=== PATIENT | female | born 1985 | race Caucasian/White ===

== ENCOUNTER 2016-06-24 06:05 | Inpatient (IN) | payer BC ==
[2016-06-24] VITALS (24 sets, daily range): BP systolic 103–153; BP diastolic 63–91
[~2016-06-24] VITALS: Ht 162.6 cm; Wt 67.6 kg
[~2016-06-24 06:05] MED LIST: HYDR-34 PO; HYDR-3583 PO; LVT.1T PO; NAPR-243 PO
[2016-06-24] MEDS ORDERED: D5 LR IV SOLUTION 1,000 ML IV SCH (06:12)
[2016-06-24] MEDS ORDERED: AMPICILLIN INJECTION 2,000 MG in NS (IVPB) 50 ML IV SCH (06:12)
[2016-06-24] MEDS ORDERED: MINERAL OIL CONCENTRATE 99.9% 15 ML UDC TOP PRN (06:15)
[2016-06-24] MEDS ORDERED: D5 LR IV SOLUTION 1,000 ML IV ONE (06:57)
[2016-06-24] MEDS ORDERED: AMPICILLIN 2000 MG INJECTION (IM/IV) ONE (06:57)
[2016-06-24] MEDS ORDERED: NS (IVPB) 50 ML ONE (06:58)
[2016-06-24 07:02] LABS: BASOPHILS % (AUTO) 0 % (0-10); EOSINOPHILS # (AUTO) 0.1 10^3/uL (0.0-0.3); EOSINOPHILS % (AUTO) 1 % (0-10); LYMPHOCYTES # (AUTO) 2.7 X 10^3 (1.0-4.0); LYMPHOCYTES % (AUTO) 24 % (12-44); MEAN CORPUSCULAR HEMOGLOBIN 32 PG (25-34); MEAN CORPUSCULAR HGB CONC 35 G/DL (32-36); MEAN CORPUSCULAR VOLUME 91 FL (80-99); MEAN PLATELET VOLUME 9.9 FL (7.4-10.4); MONOCYTES # (AUTO) 0.8 X 10^3 (0.0-1.0); MONOCYTES % (AUTO) 7 % (0-12); NEUTROPHILS # (AUTO) 7.8 X 10^3 (1.8-7.8); NEUTROPHILS % (AUTO) 68 % (42-75); PLATELET COUNT 193 10^3/uL (130-400); RED BLOOD COUNT 3.72 10^6/uL (4.35-5.85); RED CELL DISTRIBUTION WIDTH 13.5 % (10.0-14.5); WHITE BLOOD COUNT 11.5 10^3/uL (4.3-11.0)
--- NOTE | 2016-06-24 08:25 | History & Physical-OB ---
OB - Chief Complaint & HPI Date Date of Admission: Date of Admission: Jun 24, 2016 at 06:05 Chief Complaint/History OB-Reason for Admission/Chief: Induction of Labor Hx : 1 Hx Para: 0 Expected Date of Delivery: Jun 20, 2016 Gestational Age in Weeks: 40 Gestational Age in Days: 4 Indication for induction: post dates Other reason for admission: 30 y/o G1 @ 40w4d by L=8 here for elective IOL GBS+ Has had some contractions all night, no LOF. Some spotting after exam yesterday. Fetus active. c/b hypothyroidism, on synthroid 100 mcg daily. Also with anemia, on iron. History of Labs O+ Antibody neg RI Hep B/C neg/neg HIV neg RPR NR GC/CT neg/neg GBS+ Last TSH 1.16, fT4 1.4 QS normal Allergies and Home Medications Allergies Coded Allergies: No Known Drug Allergies (Unverified , 08/31/09) Home Medications Hydrocodone Bit/Acetaminophen 1 Ea Tablet, 1 EA PO Q 4 - 6 HR PRN, #15 Ref 0 Prescribed by: DAIANA BOWSER MD on 08/31/09 0938 Levothyroxine Sodium 100 Mcg Tablet, 1 EACH PO DAILY, (Reported) Naproxen 500 Mg Tablet, 1 EACH PO BID PRN, #20 Ref 0 Prescribed by: DAIANA BOWSER MD on 08/31/09 0801 OB - History Hx of Present Care: Yes Ultrasounds: Normal mid trimester US Obstetrical Complications: Other (anemia on iron) Medical Complications: Other (hypothyroidism on synthroid) Information Induced Hypertension: No Maternal Gestational Diabetes: No Obstetrical History Hx : 1 Delivery History Adverse Rxn to Tranfusion: No Patient Past Medical History hypothyroidism Social History/Family History HIV/AIDS: No Recent Infectious Disease Expo: No Alcohol Use: Denies Use Recreational Drug Use: No Smoking Cessation: Never smoker Immunizations Hepatitis A: Yes Hepatitis B: Yes Tetanus Booster (TDap): Less than 5yrs (04/14/16) Rubella: immune RPR/VDRL: Negative GBS Status: Positive HBsAG: Negative OB - Admission Exam Physical Exam Vitals: Vital Signs 06/24/16 06/24/16 06:05 07:00 Temp 97.8 Pulse 70 Resp 18 B/P (MAP) 103/67 HEENT: NCAT Heart: Rhythm Normal Lungs: Clear Abdomen: Gravid Extremities: Normal Reflexes: Normal Cervical Dilatation: 4cm Effacement: 75% Station: 0 Membranes: Ruptured Amniotic Fluid: Thin Meconium Heart Rate: 130's Accelerations: Accelerations Present Decelerations: No Decelerations Short Term Variability: Present Senior Living Variability: Average (6-25) Contractions on Admission: 6-10 Minutes Apart Intensity: Moderate Penn Scoring Tool (Modified) Dilation (cm): 3-4cm (2) Effacement (%): 51-79% (2) Descent/Station: -1,0 (2) Cervix Consistency: Soft (2) Cervix Position: Middle/Mid-Position (1) Subtract 1 point for: Nulliparity (-1) Penn Score: 8 Labs Laboratory Tests Test 06/24/16 06:45 Range/Units White Blood Count 11.5 H 4.3-11.0 10^3/uL Red Blood Count 3.72 L 4.35-5.85 10^6/uL Hemoglobin 11.8 11.5-16.0 G/DL Hematocrit 34 L 35-52 % Mean Corpuscular Volume 91 80-99 FL Mean Corpuscular Hemoglobin 32 25-34 PG Mean Corpuscular Hemoglobin Concent 35 32-36 G/DL Red Cell Distribution Width 13.5 10.0-14.5 % Platelet Count 193 130-400 10^3/uL Mean Platelet Volume 9.9 7.4-10.4 FL Neutrophils (%) (Auto) 68 42-75 % Lymphocytes (%) (Auto) 24 12-44 % Monocytes (%) (Auto) 7 0-12 % Eosinophils (%) (Auto) 1 0-10 % Basophils (%) (Auto) 0 0-10 % Neutrophils # (Auto) 7.8 1.8-7.8 X 10^3 Lymphocytes # (Auto) 2.7 1.0-4.0 X 10^3 Monocytes # (Auto) 0.8 0.0-1.0 X 10^3 Eosinophils # (Auto) 0.1 0.0-0.3 10^3/uL Basophils # (Auto) 0.0 0.0-0.1 10^3/uL OB - Assessment/Plan/Diagnosis Plan Induction Method: AROM Other Plan 30 y/o G1 @ 40w4d here for elective IOL. GBS+ Hypothyroidism on synthroid Anemia on iron Rh+ RI Ampicillin infusing AROM (thin mec) for IOL. If no change in 4 hours, start pitocin. ASVD WILLIAN Carballo MD Jun 24, 2016 08:24
[2016-06-24] MEDS ORDERED: AMPICILLIN INJECTION 1,000 MG in NS (IVPB) 50 ML IV SCH (10:15)
[2016-06-24] MEDS ORDERED: LIDOCAINE/EPI 1%-1:200,000 (XYLOCAINE) 30 ML VIAL ONE (10:24)
[2016-06-24] MEDS ORDERED: OXYTOCIN/NORMAL SALINE 500 ML IV ONE ×2 (10:50→13:10)
--- NOTE | 2016-06-24 12:08 | OB Labor & Delivery Record ---
Vag Delivery Note Vag Delivery Note Date of Delivery: 06/24/16 Preoperative Diagnosis: Alessandra Merritt is a 30 y/o G1 @ 40w4d with augmentation of labor, GBS+, hypothyroidism, thin meconium Postoperative Diagnosis: Same Surgeon: Willian Jacobson MD Anesthesia: Local for repair Delivery Type: Spontaneous vaginal delivery Findings: Viable female , apgars 8/9, weight 6lb9oz Lacerations: second degree perineal (repaired) Intact placenta with 3 vessel cord. No nuchal cord, body cord or shoulder dystocia Estimated Blood Loss: 400 ml Complications: None Condition: Stable Description of Procedure: The patient is a 30 y/o G1 @ 40w4d who presented for scheduled induction of labor. She was admitted and informed consent was obtained. I discussed with her induction with pitocin vs augmentation with AROM and she elected this. Her labor course was remarkable for only AROM with thin meconium. She progressed to complete dilatation and began to push. She was then set up for delivery. The infant's head was delivered atraumatically in the occiput anterior position. The shoulders and remainder of the 's body were then delivered without difficulty. Upon delivery, the head was held below the level of the perineum and the mouth and nares were bulb suctioned. The cord was doubly clamped and cut after the was placed on her mother's chest, crying vigorously. An intact placenta with 3-vessel cord delivered via Roma and there was found to be minimal bleeding. Vigorous fundal massage was performed and the fundus was found to be firm. IV oxytocin was given. Examination of the vagina and perineum revealed a second degree perineal laceration repaired in the usual fashion with 3-0 vicryl suture. Following the repair, sponge, instrument and needle counts were correct. Mom and baby were both in stable condition in the labor suite. Dr. Franz was present at delivery due to meconium. Vitals - Labs Vital Signs - I&O Vital Signs Date Time Temp Pulse Resp B/P (MAP) Pulse Ox O2 Delivery O2 Flow Rate FiO2 06/24/16 10:29 94 20 128/86 Room Air 06/24/16 10:14 97 20 153/84 Room Air 06/24/16 10:00 83 20 134/81 Room Air 06/24/16 09:50 69 20 126/80 Room Air 06/24/16 09:30 64 20 128/81 Room Air 06/24/16 09:15 70 20 141/91 Room Air 06/24/16 08:30 77 20 134/77 Room Air 06/24/16 08:10 73 20 121/66 Room Air 06/24/16 07:50 70 18 116/68 Room Air 06/24/16 07:30 77 18 111/63 Room Air 06/24/16 07:10 70 18 103/67 06/24/16 07:00 70 18 103/67 06/24/16 06:05 97.8 82 18 117/74 Labs Laboratory Tests 06/24/16 06:45: White Blood Count 11.5H, Red Blood Count 3.72L, Hemoglobin 11.8, Hematocrit 34L , Mean Corpuscular Volume 91, Mean Corpuscular Hemoglobin 32, Mean Corpuscular Hemoglobin Concent 35, Red Cell Distribution Width 13.5, Platelet Count 193, Mean Platelet Volume 9.9, Neutrophils (%) (Auto) 68, Lymphocytes (%) (Auto) 24, Monocytes (%) (Auto) 7, Eosinophils (%) (Auto) 1, Basophils (%) (Auto) 0, Neutrophils # (Auto) 7.8, Lymphocytes # (Auto) 2.7, Monocytes # (Auto) 0.8, Eosinophils # (Auto) 0.1, Basophils # (Auto) 0.0 WILLIAN JACOBSON MD Jun 24, 2016 12:08
[2016-06-24] MEDS ORDERED: IBUP-1773 PO (12:11)
[2016-06-24] MEDS ORDERED: ACET-789 PO (12:11)
[2016-06-24] MEDS ORDERED: DOCU-143 PO (12:11)
--- NOTE | 2016-06-24 12:12 | Discharge Inst-Women's Service ---
Discharge Inst-Women's Serv Depart Medication/Instructions New, Converted or Re-Newed RX: RX on Chart Final Diagnosis TIUP, augmentation of labor, GBS+, Consults/Follow Up Additional Follow Up: Yes Orders/Referrals [address] Benitez Activity Activity: Activity as Tolerated Driving Instructions: You May Drive (unless taking narcotic pain medications) NO SMOKING: NO SMOKING Nothing Inside Vagina: No Douching, No Colp, No Tampons Diet Discharge Diet: No Restrictions Symptoms to Report to : Bleeding Excessive, Pain Increased, Fever Over 101 Degrees F, Pain/Pressure in Chest, Vaginal Bleeding Increase, Dizziness/Fainting , Nausea/Vomiting, Shortness of Breath For Any Problems or Questions: Contact Your Physician WILLIAN BENITEZ MD Jun 24, 2016 12:12
[2016-06-24] MEDS ORDERED: CATHETER FLUSH 10 ML SYR IV SCH (14:00)
[2016-06-24] MEDS ORDERED: BENZOCAINE/MENTHOL (DERMOPLAST) 56 ML CAN TP ONE (14:24)
[2016-06-24] MEDS ORDERED: OXYTOCIN/NORMAL SALINE 500 ML IV SCH (15:42)
[2016-06-24] MEDS ORDERED: BENZOCAINE/MENTHOL (DERMOPLAST) 56 ML CAN TP PRN (15:45)
[2016-06-24] MEDS ORDERED: APAP 300 MG/CODEINE 30 MG (TYLENOL #3) TAB PO PRN (15:45)
[2016-06-24] MEDS ORDERED: WITCH HAZEL(TUCKS) 40 EA JAR TOP PRN (15:45)
[2016-06-24] MEDS: IBUPROFEN 600 MG (MOTRIN) TAB PO SCH (21:56)
[2016-06-24] MEDS: DOCUSATE SODIUM 100 MG (COLACE) CAP PO SCH (21:56)
[2016-06-25 02:15] VITALS: BP 95/54
[2016-06-25 04:25] VITALS: BP 115/77
[2016-06-25] MEDS: IBUPROFEN 600 MG (MOTRIN) TAB PO SCH ×5 (04:29→21:17)
[2016-06-25 06:05] LABS: BASOPHILS % (AUTO) 0 % (0-10); EOSINOPHILS # (AUTO) 0.1 10^3/uL (0.0-0.3); EOSINOPHILS % (AUTO) 1 % (0-10); LYMPHOCYTES # (AUTO) 3.4 X 10^3 (1.0-4.0); LYMPHOCYTES % (AUTO) 21 % (12-44); MEAN CORPUSCULAR HEMOGLOBIN 32 PG (25-34); MEAN CORPUSCULAR HGB CONC 34 G/DL (32-36); MEAN CORPUSCULAR VOLUME 93 FL (80-99); MONOCYTES # (AUTO) 0.9 X 10^3 (0.0-1.0); MONOCYTES % (AUTO) 6 % (0-12); NEUTROPHILS # (AUTO) 11.7 X 10^3 (1.8-7.8); NEUTROPHILS % (AUTO) 73 % (42-75); PLATELET COUNT 214 10^3/uL (130-400); RED BLOOD COUNT 3.77 10^6/uL (4.35-5.85); RED CELL DISTRIBUTION WIDTH 13.8 % (10.0-14.5); WHITE BLOOD COUNT 16.1 10^3/uL (4.3-11.0)
[2016-06-25] MEDS: PRENATAL VITAMIN 1 EA TAB PO SCH (07:00)
[2016-06-25] MEDS: DOCUSATE SODIUM 100 MG (COLACE) CAP PO SCH ×2 (09:57→21:14)
[2016-06-25 10:01] VITALS: BP 105/67
[2016-06-25] MEDS: FERROUS SULF 325 MG (IRON) TAB PO SCH (12:58)
[2016-06-25 13:37] VITALS: BP 118/79
[2016-06-25 20:55] VITALS: BP 116/72
[2016-06-25] MEDS: CATHETER FLUSH 10 ML SYR IV SCH (21:16)
[2016-06-26 03:07] VITALS: BP 111/73
[2016-06-26] MEDS: IBUPROFEN 600 MG (MOTRIN) TAB PO SCH ×2 (04:25→10:21)
[2016-06-26] MEDS: CATHETER FLUSH 10 ML SYR IV SCH (06:00)
[2016-06-26 08:08] VITALS: BP 96/60
[2016-06-26] MEDS: FERROUS SULF 325 MG (IRON) TAB PO SCH (09:00)
[2016-06-26] MEDS: DOCUSATE SODIUM 100 MG (COLACE) CAP PO SCH (09:01)
[2016-06-26] MEDS: PRENATAL VITAMIN 1 EA TAB PO SCH (09:01)
--- NOTE | 2016-06-26 10:43 | Postpartum Progress Note ---
Note Note Day # 2 Subjective: Patient is without complaints. Ambulating, voiding. Tolerating a regular diet without nausea or vomiting. Normal lochia. Pain is well controlled with oral pain medications. breast feeding. Objective: Vital Sign - Last 12Hours 06/26/16 06/26/16 03:07 08:08 Temp 97.1 96.9 Pulse 72 85 Resp 18 18 B/P (MAP) 111/73 96/60 Pulse Ox 98 97 O2 Delivery Room Air Room Air Physical Exam: General - Alert and oriented, no apparent distress Abdomen - Soft, appropriately tender to palpation, non-distended, fundus firm at umbilicus Extremities - no edema, negative Sacha's bilaterally Assessment: 1. post- day # 2, status post spont vaginal delivery. Recovering well, hemodynamically stable Plan: Routine care. Encourage breast feeding. Encourage ambulation. Ferrous sulfate supplementation. Plan for discharge tomorrow Vitals - Labs Vital Signs - I&O Vital Signs Date Time Temp Pulse Resp B/P (MAP) Pulse Ox O2 Delivery O2 Flow Rate FiO2 06/26/16 08:08 96.9 85 18 96/60 97 Room Air 06/26/16 03:07 97.1 72 18 111/73 98 Room Air 06/25/16 20:55 97.4 91 18 116/72 98 Room Air 06/25/16 13:37 97.3 101 18 118/79 99 Room Air MURALI QUIROZ DO Jun 26, 2016 10:42
== END 2016-06-26 12:45 | disposition home or self-care (01) | DRG 775 ==
LOC: LDRP 06:05
PROVIDERS: ADMIT Obstetrics & Gynecology; ATTEND Obstetrics & Gynecology
PROC: 10E0XZZ Delivery of Products of Conception, External Approach (ICD-10-PCS; principal; 2016-06-24)
PROC: 0KQM0ZZ Repair Perineum Muscle, Open Approach (ICD-10-PCS; 2016-06-24)
DX: O48.0 Post-term pregnancy (principal); O70.1 Second degree perineal laceration during delivery; O99.283 Endocrine, nutritional and metabolic diseases complicating pregnancy, third trimester; E03.9 Hypothyroidism, unspecified; O99.013 Anemia complicating pregnancy, third trimester; D64.9 Anemia, unspecified; O99.820 Streptococcus B carrier state complicating pregnancy; Z3A.40 40 weeks gestation of pregnancy; Z37.0 Single live birth
CPT/HCPCS: 36415; 85025; 86850; 86900; 86901

== ENCOUNTER → 2018-09-14 | Outpatient (CLI) | payer BC ==
[~2018-09-14] MED LIST changes: +ACET-789 PO; +DOCU-143 PO; +IBUP-1773 PO
--- NOTE | 2018-09-14 16:43 | Diagnostic Imaging Report ---
INDICATION: Anatomic survey. Clinical dates of 20 weeks and 6 days. TECHNIQUE: Multiple real-time grayscale images were obtained over the gravid uterus. COMPARISON: None. FINDINGS: There is a single live intrauterine gestation in transverse position with the head to maternal right. The cervix measures 4.7 cm with no funneling seen. The placenta is anterior/fundal without evidence of previa. The heart rate measures 158 BPM. Amniotic fluid is subjectively within normal limits, with a visible vertical pocket measuring 5.7 cm. The lateral ventricles are seen and appear normal. The cerebellum and cisterna magna are normal. The upper and lower spine are seen. The stomach is seen. The kidneys are seen. The bladder is seen. The cord insertion is seen. A three-vessel cord is seen. A four-chamber heart is seen. The profile is seen. Upper and lower extremities are present. The maternal adnexa are not seen. Biometrical measurements are as follows: Biparietal 5.14 cm, age 21 weeks 5 days. Head circumference 18.31 cm, age 20 weeks 5 days. Abdominal circumference 15.27 cm, age 20 weeks 4 days. Femur length 3.39 cm, age 20 weeks 5 days. Sonographic estimate age: 21 weeks 0 days. Sonographic estimated date of delivery: 01/25/2019. Estimated Weight: 365 gm (+/- 53 gm). LMP percentile: 32%. heart rate: 158 beats per minute. number: 1 of 1. IMPRESSION: 1. Single live intrauterine gestation measuring at 21 weeks and 0 days. heart rate and amniotic fluid appear normal. 2. Amniotic survey, as described above. No abnormalities are seen. Dictated by: Dictated on workstation # [id number]
== END ==
LOC: RAD 15:16
PROVIDERS: ATTEND Obstetrics & Gynecology
DX: Z36.89 Encounter for other specified antenatal screening (principal); Z3A.21 21 weeks gestation of pregnancy
CPT/HCPCS: 76805

== ENCOUNTER 2019-01-19 19:44 | Inpatient (IN) | payer BC ==
[~2019-01-19] VITALS: Ht 162.6 cm; Wt 65.7 kg
[2019-01-19 19:55] VITALS: BP 122/74
[2019-01-19] MEDS ORDERED: D5 LR IV SOLUTION 1,000 ML IV SCH (20:08)
[2019-01-19] MEDS ORDERED: MINERAL OIL CONCENTRATE 99.9% 15 ML UDC TOP PRN (20:15)
[2019-01-19 21:00] VITALS: BP 110/71
[2019-01-19 21:08] LABS: BASOPHILS % (AUTO) 0 % (0-10); EOSINOPHILS # (AUTO) 0.1 10^3/uL (0.0-0.3); EOSINOPHILS % (AUTO) 1 % (0-10); HEMATOCRIT 33 % (35-52); HEMOGLOBIN 11.6 G/DL (11.5-16.0); LYMPHOCYTES # (AUTO) 2.9 X 10^3 (1.0-4.0); LYMPHOCYTES % (AUTO) 24 % (12-44); MEAN CORPUSCULAR HEMOGLOBIN 32 PG (25-34); MEAN CORPUSCULAR HGB CONC 36 G/DL (32-36); MEAN CORPUSCULAR VOLUME 91 FL (80-99); MEAN PLATELET VOLUME 9.8 FL (7.4-10.4); MONOCYTES # (AUTO) 0.7 X 10^3 (0.0-1.0); MONOCYTES % (AUTO) 6 % (0-12); NEUTROPHILS # (AUTO) 8.3 X 10^3 (1.8-7.8); NEUTROPHILS % (AUTO) 69 % (42-75); PLATELET COUNT 205 10^3/uL (130-400); RED CELL DISTRIBUTION WIDTH 13.4 % (10.0-14.5); WHITE BLOOD COUNT 11.9 10^3/uL (4.3-11.0)
[2019-01-19] MEDS ORDERED: CATHETER FLUSH 10 ML SYR IV SCH (22:00)
[2019-01-20] VITALS (15 sets, daily range): BP systolic 94–124; BP diastolic 51–84
--- NOTE | 2019-01-20 07:12 | History & Physical-OB ---
OB - Chief Complaint & HPI Date/Time Date of Admission: Date of Admission: Jan 19, 2019 at 20:00 Date seen by a Provider: Jan 20, 2019 Time Seen by a Provider: 07:00 Chief Complaint/History OB-Reason for Admission/Chief: Onset of Labor Hx : 2 Hx Para: 1 Expected Date of Delivery: Jan 26, 2019 Gestational Age in Weeks: 39 Gestational Age in Days: 0 Admission Nurse Assessment Rev: Yes Allergies and Home Medications Allergies Coded Allergies: No Known Drug Allergies (Unverified , 08/31/09) Home Medications Acetaminophen with Codeine 1 Each Tablet, 1-2 EACH PO Q4H PRN for PAIN Prescribed by: WILLIAN JACOBSON on 06/24/16 1211 Docusate Sodium 100 Mg Capsule, 100 MG PO BID PRN for CONSTIPATION-1ST LINE Prescribed by: WILLIAN JACOBSON on 06/24/16 1211 Ibuprofen 600 Mg Tablet, 600 MG PO Q6H PRN for PAIN Prescribed by: WILLIAN JACOBSON on 06/24/16 1211 Levothyroxine Sodium 100 Mcg Tablet, 1 EACH PO DAILY, (Reported) Patient Home Medication List Home Medication List Reviewed: Yes OB - History Hx of Present Care: Yes Ultrasounds: Normal mid trimester US Obstetrical Complications: None Medical Complications: None Delivery History Adverse Rxn to Tranfusion: No Patient Past Medical History hypothyroidism Social History/Family History HIV/AIDS: No Alcohol Use: Denies Use Recreational Drug Use: No Immunizations Hepatitis A: Yes Hepatitis B: Yes Tetanus Booster (TDap): Less than 5yrs OB - Admission Exam Physical Exam Vitals: Vital Signs 01/19/19 01/19/19 01/20/19 19:55 21:00 00:00 Temp 36.8 Pulse 95 Resp 16 B/P (MAP) 110/71 (84) Pulse Ox 97 O2 Delivery Room Air HEENT: NCAT Heart: Rhythm Normal Lungs: Clear Abdomen: Gravid Extremities: Normal Reflexes: Normal Cervical Dilatation: 6cm Effacement: 75% Station: 0 Membranes: Intact Heart Rate: 130's Accelerations: Accelerations Present Decelerations: No Decelerations Short Term Variability: Present Fci Variability: Average (6-25) Contractions on Admission: 6-10 Minutes Apart Labs Laboratory Tests Test 01/19/19 20:40 Range/Units White Blood Count 11.9 H 4.3-11.0 10^3/uL Red Blood Count 3.58 L 4.35-5.85 10^6/uL Hemoglobin 11.6 11.5-16.0 G/DL Hematocrit 33 L 35-52 % Mean Corpuscular Volume 91 80-99 FL Mean Corpuscular Hemoglobin 32 25-34 PG Mean Corpuscular Hemoglobin Concent 36 32-36 G/DL Red Cell Distribution Width 13.4 10.0-14.5 % Platelet Count 205 130-400 10^3/uL Mean Platelet Volume 9.8 7.4-10.4 FL Neutrophils (%) (Auto) 69 42-75 % Lymphocytes (%) (Auto) 24 12-44 % Monocytes (%) (Auto) 6 0-12 % Eosinophils (%) (Auto) 1 0-10 % Basophils (%) (Auto) 0 0-10 % Neutrophils # (Auto) 8.3 H 1.8-7.8 X 10^3 Lymphocytes # (Auto) 2.9 1.0-4.0 X 10^3 Monocytes # (Auto) 0.7 0.0-1.0 X 10^3 Eosinophils # (Auto) 0.1 0.0-0.3 10^3/uL Basophils # (Auto) 0.0 0.0-0.1 10^3/uL OB - Assessment/Plan/Diagnosis Assessment Assessment: active labor Admission Dx 33 yo @ 39 weeks Active labor Hypothyroidism GBS neg Admission Status: Inpatient Order (span 2 midnights) Reason for Inpatient Admission: Term labor Plan Other Plan CRYSTAL TELLEZ DO Jan 20, 2019 07:12 POS
--- NOTE | 2019-01-20 07:20 | NUR ---
THIS RN INTRODUCES SELF TO PT AND SO. PHYSICAL ASSESSMENT COMPLETE. DENIES NEEDS AT THIS TIME. CALL LIGHT WITHIN REACH. PT LABORING WELL. BREATHING WELL WITH EACH UC.
[2019-01-20] MEDS ORDERED: LIDOCAINE/EPI 2% 1:200,00 (XYLOCAINE) 10 ML VIAL ONE (07:46)
[2019-01-20] MEDS ORDERED: ONDANSETRON 4 MG/2 ML (SDV) Z0FRAN ONE (07:57)
[2019-01-20] MEDS ORDERED: OXYTOCIN/NORMAL SALINE 500 ML IV SCH ×2 (08:13→09:42)
[2019-01-20] MEDS ORDERED: OXYTOCIN/NORMAL SALINE 500 ML IV ONE (08:14)
[2019-01-20] MEDS ORDERED: LIDOCAINE/EPI 2% 1:200,00 (XYLOCAINE) 10 ML VIAL INJ ONE (08:15)
[2019-01-20] MEDS ORDERED: ONDANSETRON 4 MG/2 ML (SDV) Z0FRAN IVP ONE (08:15)
--- NOTE | 2019-01-20 08:15 | NUR ---
DR PEREYRA UPDATED ON PT STATUS. PT CO FEELING PUSHY. SVE BY THIS RN. 6CM, CAN STRETCH TO 7CM, 0 STATION. ORDERS TO START PITOCIN AT THIS TIME.
[2019-01-20] MEDS ORDERED: BENZOCAINE/MENTHOL (DERMOPLAST) 56 ML CAN TP PRN (09:45)
[2019-01-20] MEDS ORDERED: DIBUCAINE (NUPERCAINAL) 1% OINT 30 GM TOP PRN (09:45)
[2019-01-20] MEDS ORDERED: WITCH HAZEL(TUCKS) 40 EA JAR TOP PRN (09:45)
[2019-01-20] MEDS ORDERED: TETANUS,DIPTH,PERTUSS P/F (BOOSTRIX) 0.5 ML VIAL IM ONE (09:45)
[2019-01-20] MEDS ORDERED: MEASLES,MUMPS,RUBELLA 1 EA INJ SQ ONE (09:45)
[2019-01-20] MEDS ORDERED: HYDROcodone/APAP 5 MG/325 MG (LORTAB) TAB PO PRN (09:45)
--- NOTE | 2019-01-20 09:47 | OB Labor & Delivery Record ---
L&D History Date of Service Date of Service: Jan 20, 2019 History Expected Date of Delivery: Jan 26, 2019 Gestational Age in Weeks: 39 Hx : 2 Hx Para: 1 Complications Events: Routine care Operative Indications (Cesarea: N/A-Vaginal Delivery Intrapartal Events: None L&D Stage1 Stage One Onset of Labor - Date: Jan 20, 2019 Monitors and Tracing Monitor Mode: External Heart Rate: 130 Monitor Accelerations: Uniform Monitor Decelerations: Early Station: 0 Makeup Artistry Instructor Variability: Average (6-10) Short Term Variability: Present Presentation: Vertex Vital Signs VS - Last 72 Hours, by Label POS 01/19/19 01/19/19 01/19/19 01/20/19 19:55 19:55 21:00 00:00 Temp 36.8 Pulse 114 114 95 Resp 18 18 16 B/P (MAP) 122/74 (90) 110/71 (84) Pulse Ox 97 97 97 O2 Delivery Room Air Room Air Room Air Room Air 01/20/19 01/20/19 01/20/19 01/20/19 07:15 07:30 07:45 08:00 Pulse 81 77 94 Resp 20 B/P (MAP) 118/77 (91) 124/77 (93) 117/76 (90) O2 Delivery Room Air Room Air Room Air Room Air 01/20/19 08:15 Temp 36.1 B/P (MAP) O2 Delivery Room Air Rupture of Membranes Spontaneous Ruture of Membrane: No Amniotic Membrane Rupture Time: 0700 Amniotic Membrane Fluid Desc.: Clear Vaginal Bleeding Description: Normal Show Progress/Notes Patient progressed in 1.5 hrs and 2 mu of pitocin after arom to complete and +1 station when she began to feel urge to push L&D Stage2 Stage Two Stage II Date: Jan 20, 2019 Monitors and Tracing Monitor Mode: External Heart Rate: 130 Monitor Decelerations: Variable Nursing Home Variability: Average (6-10) Short Term Variability: Present Position: Right Occiput Anterior Presentation: Vertex Cord Descript/Complications Cord Vessel Description: 3 Vessels Complications tight nuchal clamped and cut at perineum Delivery Type Infant Delivery Method: Spontaneous Vaginal Anterior Shoulder: Right Episiotomy/Perineal Laceration Laceraction(s)/Extensions: Yes Episiotomy Description: Perineal Extension/lac, 2nd degree Degree (describe repair) 2nd degree perineal laceration repaired using 3-0 and 2-0 vicryl suture Condition of Delivery 1 minute Comment: 8 5 minute Comment: 9 Notes Live male infant weight 7lbs 7oz Condition of Infant Condition of Infant: Living Exam: No Observed Abnormalities Resuscitation Resuscitation: N/A - Spontaneous Resp L&D Stage3 Stage Three Stage III Date: Jan 20, 2019 Pictocin Pitocin Administration mu/min: 2 Pitocin ml/hr: 2 Pitocin Administration Comment: 30 mu wide open at delivery of placenta Placenta Delivery Placenta Delivery: Spontaneous Delivery Summary Summary Estimated blood loss (mL): 350 mL Attending at delivery: Crystal Pereyra DO Condition of Delivery Examined: Cervix Examined, Uterus Explored Post Hemorrhage: No Condition of Mother stable Condition of (s) stable CRYSTAL PEREYRA DO Jan 20, 2019 9:47 am POS
[2019-01-20] MEDS ORDERED: Benzocaine/Menthol TP (09:48)
[2019-01-20] MEDS ORDERED: FERR325T18 PO (09:48)
[2019-01-20] MEDS ORDERED: DIBU30OI TOP (09:48)
[2019-01-20] MEDS ORDERED: DOCU100C37 PO (09:48)
[2019-01-20] MEDS ORDERED: ACHD5005 PO (09:48)
[2019-01-20] MEDS ORDERED: IBUP-844 PO (09:48)
--- NOTE | 2019-01-20 09:49 | Discharge Inst-Women's Service ---
Discharge Inst-Women's Serv Depart Medication/Instructions New, Converted or Re-Newed RX: RX on Chart Final Diagnosis PPD 1 NVD Problems Reviewed?: Yes Consults/Follow Up Additional Follow Up: Yes Orders/Referrals Dr. Pereyra in 6 weeks Activity Activity: Activity as Tolerated Driving Instructions: No Driving for 1 Week NO SMOKING: NO SMOKING Nothing Inside Vagina: No Douching, No Ivey, No Tampons Diet Discharge Diet: No Restrictions Symptoms to Report to : Bleeding Excessive, Pain Increased, Fever Over 101 Degrees F, Vaginal Bleeding Increase, Questions/Concerns For Any Problems or Questions: Contact Your Physician CRYSTAL PEREYRA DO Jan 20, 2019 9:49 am POS
[2019-01-20] MEDS: IBUPROFEN 600 MG (MOTRIN) TAB PO SCH ×3 (10:14→22:28)
--- NOTE | 2019-01-20 11:28 | NUR ---
0903: dr gifford at bedside. room set up for delivery. pt placed in stirrups. 0904: pt begins pushing at this time. pt's , dr gifford, this rn, elaine rn, and dr gifford's student at bedside. 0918: delivery of head with tight nuchal cord. cord clamped and cut by dr gifford. 0919: spontaneous vaginal delivery of [address] gifford. infant placed on mothers chest. elaine at bedside for infant assessment. 0934: delivery of intact placenta by dr gifford 0940: recovery period begins. vss. fundus firm, midline, 1 below, light bleeding. pericare by this rn. linen change. pt denies pain. call light within reach. 0955: vss. fundus firm, midline, 1 below, light bleeding. pt denies needs at this time. call light within reach. 1010: vss. fundus firm, midline, 1 below, light bleeding. pt denies needs at this time. call light within reach. pt attempting to breastfeed. 1025: vss. fundus firm, midline, 1 below, light bleeding. pt denies needs at this time. call light within reach. pt curently infant without complications. 1040: vss. fundus firm, midline, 1 below, light bleeding. pt denies needs at this time. recovery period ended. pericare by this rn, gown changed. infant swaddled and to crib. fob gathered belongings. 1100: pt walks to room 309 with this rn, fob pushed infant in crib.
[2019-01-20] MEDS ORDERED: CATHETER FLUSH 10 ML SYR IV SCH (14:00)
[2019-01-20] MEDS: DOCUSATE SODIUM 100 MG (COLACE) CAP PO SCH (22:28)
[2019-01-21 00:22] VITALS: BP 94/64
[2019-01-21 04:15] VITALS: BP 110/73
[2019-01-21] MEDS: IBUPROFEN 600 MG (MOTRIN) TAB PO SCH ×2 (04:15→09:57)
[2019-01-21 06:10] LABS: BASOPHILS % (AUTO) 0 % (0-10); EOSINOPHILS # (AUTO) 0.1 10^3/uL (0.0-0.3); EOSINOPHILS % (AUTO) 1 % (0-10); HEMATOCRIT 25 % (35-52); HEMOGLOBIN 8.3 G/DL (11.5-16.0); LYMPHOCYTES # (AUTO) 3.5 X 10^3 (1.0-4.0); LYMPHOCYTES % (AUTO) 29 % (12-44); MEAN CORPUSCULAR HEMOGLOBIN 32 PG (25-34); MEAN CORPUSCULAR HGB CONC 34 G/DL (32-36); MEAN CORPUSCULAR VOLUME 94 FL (80-99); MEAN PLATELET VOLUME 9.4 FL (7.4-10.4); MONOCYTES # (AUTO) 0.9 X 10^3 (0.0-1.0); MONOCYTES % (AUTO) 7 % (0-12); NEUTROPHILS # (AUTO) 7.7 X 10^3 (1.8-7.8); NEUTROPHILS % (AUTO) 63 % (42-75); PLATELET COUNT 182 10^3/uL (130-400); RED CELL DISTRIBUTION WIDTH 13.7 % (10.0-14.5); WHITE BLOOD COUNT 12.2 10^3/uL (4.3-11.0)
[2019-01-21 08:00] VITALS: BP 102/55
--- NOTE | 2019-01-21 08:00 | NUR ---
A.M. ASSESSMENT COMPLETED. VSS.
--- NOTE | 2019-01-21 08:09 | Postpartum Progress Note ---
Note Note Day # 1 Subjective: Patient is without complaints. Ambulating, voiding. Tolerating a regular diet without nausea or vomiting. Normal lochia. Pain is well controlled with oral pain medications. Objective: Physical Exam: General - Alert and oriented, no apparent distress Abdomen - Soft, appropriately tender to palpation, non-distended, fundus firm at umbilicus Extremities - no edema, negative Sacha's bilaterally Assessment: PPD 1 NVD Acute blood loss anemia Plan: Routine care. Encourage breast feeding. Encourage ambulation. Ferrous sulfate supplementation. Plan for discharge today Vitals - Labs Vital Signs - I&O Vital Signs Date Time Temp Pulse Resp B/P (MAP) Pulse Ox O2 Delivery O2 Flow Rate FiO2 01/21/19 04:15 37.1 80 18 110/73 (85) 97 Room Air 01/21/19 00:22 36.6 88 18 94/64 (74) 98 Room Air 01/20/19 20:00 37.1 81 18 94/60 (71) 99 Room Air 01/20/19 16:30 36.5 70 16 122/84 (97) 99 Room Air 01/20/19 12:30 37.0 74 16 94/51 (65) 98 Room Air 01/20/19 10:56 36.5 80 16 106/69 (81) Room Air 01/20/19 10:41 83 110/69 (83) Room Air 01/20/19 10:26 89 111/72 (85) Room Air 01/20/19 10:11 74 109/72 (84) Room Air 01/20/19 09:57 73 108/62 (77) Room Air 01/20/19 09:41 36.8 77 18 118/63 (81) 99 Room Air 01/20/19 09:15 82 122/70 (87) Room Air 01/20/19 09:00 78 106/69 (81) Room Air 01/20/19 08:45 Room Air 01/20/19 08:30 72 124/79 (94) Room Air 01/20/19 08:15 36.1 Room Air Labs Laboratory Tests 01/21/19 05:32: White Blood Count 12.2H, Red Blood Count 2.63L, Hemoglobin 8.3#L, Hematocrit 25L , Mean Corpuscular Volume 94, Mean Corpuscular Hemoglobin 32, Mean Corpuscular Hemoglobin Concent 34, Red Cell Distribution Width 13.7, Platelet Count 182, Mean Platelet Volume 9.4, Neutrophils (%) (Auto) 63, Lymphocytes (%) (Auto) 29, Monocytes (%) (Auto) 7, Eosinophils (%) (Auto) 1, Basophils (%) (Auto) 0, Neutrophils # (Auto) 7.7, Lymphocytes # (Auto) 3.5, Monocytes # (Auto) 0.9, Eosinophils # (Auto) 0.1, Basophils # (Auto) 0.0 CRYSTAL PEREYRA DO Jan 21, 2019 08:09 POS
--- NOTE | 2019-01-21 08:30 | NUR ---
DR. PEREYRA IN TO SEE PT. PLAN FOR DISCHARGE.
[2019-01-21] MEDS ORDERED: FERROUS SULF 325 MG (IRON) TAB PO SCH (09:00)
[2019-01-21] MEDS: DOCUSATE SODIUM 100 MG (COLACE) CAP PO SCH (09:57)
[2019-01-21] MEDS: PRENATAL VITAMIN 1 EA TAB PO SCH (09:57)
--- NOTE | 2019-01-21 10:30 | NUR ---
PT HAS HAD THE TDAP VACCINE AND REFUSED THE FLU.
--- NOTE | 2019-01-21 12:00 | NUR ---
CARING FOR INFANT IN ROOM. WELL.
--- NOTE | 2019-01-21 13:30 | NUR ---
DISCHARGE INSTRUCTIONS REVIEWED WITH COPY TO PT. STATES UNDERSTANDING OF ALL INSTRUCTIONS AND NEED TO F/U SCHEDULED AND NEEDED.
[2019-01-21 13:40] VITALS: BP 102/55
--- NOTE | 2019-01-21 13:40 | NUR ---
DISMISSED AMB FROM [facility] WITH INFANT TO FAMILY CAR IN STABLE CONDITION ACC BY SPOUSE, [id number], AND EUSEBIO PAYNE.
== END 2019-01-21 13:40 | disposition home or self-care (01) | DRG 806 ==
LOC: WSo 19:44 → LDRP 19:53 → WSo 20:00 → LDRP 20:00
PROVIDERS: ADMIT Obstetrics & Gynecology; ATTEND Obstetrics & Gynecology
PROC: 10E0XZZ Delivery of Products of Conception, External Approach (ICD-10-PCS; principal; 2019-01-20)
PROC: 0KQM0ZZ Repair Perineum Muscle, Open Approach (ICD-10-PCS; 2019-01-20)
DX: O70.1 Second degree perineal laceration during delivery (principal); O69.1XX0 Labor and delivery complicated by cord around neck, with compression, not applicable or unspecified; O90.81 Anemia of the puerperium; D62 Acute posthemorrhagic anemia; O99.284 Endocrine, nutritional and metabolic diseases complicating childbirth; Z37.0 Single live birth; Z3A.39 39 weeks gestation of pregnancy
CPT/HCPCS: 36415; 85025; 86850; 86900; 86901; 99212